=== PATIENT | male | born 1990 | race Caucasian/White ===

== ENCOUNTER 2021-11-26 03:52 | Emergency (ER) | payer OTHER, MEDICAID ==
[~2021-11-26] VITALS: Ht 193 cm; Wt 97.0 kg
[2021-11-26] MEDS ORDERED: methylPREDNISolone SOD SUCC 125 MG/2 ML VL IV ONE (04:45)
[2021-11-26] MEDS ORDERED: FAMOTIDINE (10MG/ML) 2ML VL IV ONE (04:45)
[2021-11-26] MEDS ORDERED: DexAMETHasone SOD PHOS 10MG/1ML VIAL INJ IV ONE (08:30)
[2021-11-26] MEDS ORDERED: diphenhdrAMINE HCL 50 MG/1 ML VL IV ONE (08:30)
[2021-11-26] MEDS ORDERED: PRED20TA2 PO (09:49)
[2021-11-26] MEDS ORDERED: FAMO20TA10 PO (09:49)
[2021-11-26] MEDS ORDERED: DIPH25CA66 PO (09:49)
[2021-11-26 11:05] VITALS: BP 115/77
== END 2021-11-26 11:11 | disposition home or self-care (01) ==
LOC: EDBD 03:52 → ER 03:52
DX: T78.40XA Allergy, unspecified, initial encounter (principal); T78.3XXA Angioneurotic edema, initial encounter; J45.909 Unspecified asthma, uncomplicated; X58.XXXA Exposure to other specified factors, initial encounter
CPT/HCPCS: 96374; 96375; 99284; J1100; J1200; J2930; J3490